=== PATIENT | male | born 1995 | race African-American/Black ===

== ENCOUNTER 2016-08-26 15:34 | Emergency (ER) | payer OTHER ==
[~2016-08-26] VITALS: Ht 180.3 cm; Wt 62.6 kg
[2016-08-26 16:15] VITALS: BP 132/65
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
== END 2016-08-26 17:49 | disposition home or self-care (01) ==
LOC: ER 15:34
DX: T47.5X Poisoning by, adverse effect of and underdosing of digestants (principal); S00.83XA Contusion of other part of head, initial encounter; Y04.0XXA Assault by unarmed brawl or fight, initial encounter; Y93.89 Activity, other specified; Y92.89 Other specified places as the place of occurrence of the external cause; Y99.8 Other external cause status
CPT/HCPCS: 99283